=== PATIENT | male | born 1965 | race Two or more races ===

== ENCOUNTER 2025-04-08 17:22 | Emergency (ER) | payer BC ==
--- OUTSIDE RECORDS SUMMARY | 2025-04-08 17:26 | XMS REPORT | Continuity of Care Document ---
Author Name Unknown Address [address] [place] [address] Organization [facility] [place] Address [address] [place] [address] Care Team Providers Care Major Assembly Inspector Name Role Phone Pcp, Patient Does Not Have A Primary Care Physic alix Unavailable Gonzalo Madrigal Attending Clinician Unavailable Darrell Delcid Attending Clinician [phone] Unknown, Attending Attending Clinician Unavailab SALAS Hartman Attending Clinician Unavailable Salas Irby Attending Clinician [phone] Unknown, Attending Attending Clinician Unavailab PROMISE Browne Attending Clinician Unavailable Promise Valencia PA-C Attending Clinician [phone] Doctor Unassigned, [place] Attending Clinician U navailANANTH Mitchell Attending Clinician Unavail ANANTH Mitchell Attending Clinician Unavail Ananth Mitchell MD Attending Clinician [phone] JASMYN ADAME Attending Clinician UnavailAspen Matos MD Attending Clinician [phone] Jasmyn Mon Attending Clinician [phone] Payers Payer Name Policy Type Policy Number Effective Date Expirati on Date Source [facility] [id number] [facility] Problems Condition Name Condition Details Condition Category Status Onset Date Resolution Date Last Treatment Date Treating Clinician Comments Source No known active problems No known active problems Disease [facility] 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 Type 2 diabetes mellitus with hyperglyce kalpana Problem [facility] Hyperlipid aemia Hyperlipem ia Problem [facility] Hypertensi on Hypertensi on Problem [facility] [id number] Iron deficiency anemia, unspecifie d iron deficiency anemia type Problem [facility] Allergies, Adverse Reactions, Alerts Allergy Name Allergy Type Status Severity Reaction(s) Onset Date Inactive Date Treating Clinician Comments Source NO KNOWN ALLERGIE S Drug Class Active [facility] Social History Social Habit Start Date Stop Date Quantity Comments Source Gender identity [facility] Sexual orientation U [facility] History of Tobacco Use [facility] Sex Assigned At [facility] Exposure to SARS-CoV-2 (event) 2022-03-12 00:00:00 2022-03-22 14:05:[address] [facility] [place] [place] History of Social function 2021-06-19 00:00:00 2021-06-19 00:00:[address] [facility] [place] [place] Tobacco use and exposure 2021-03-26 00:00:00 2021-03-26 00:00:00 Smokeless tobacco non-user [facility] [place] [place] Smoking Status Start Date Stop Date Source Never Smoker [facility] Medications Ordered Medication Name Filled Medication Name Start Date Stop Date Current Medication? Ordering Clinician Indication Dosage Frequency Signature (SIG) Comments Components Source cephALEXin 500 mg capsule 2024-06 0-15 00:00: 00 04-17 04:59 :00 Yes [id number] 500mg Take 1 capsule by mouth 4 times daily for 10 days. [facility] nirmatrelvi r-ritonavir (PAXLOVID) 300 mg (150 mg x 2)-100 mg tablet 6-25 00:00: 00 Yes [id number] 3{tbl} Take 3 tablets by mouth in the morning and 3 tablets in the evening. [facility] amoxicillin 500 mg capsule 8-24 00:00: 00 02-21 04:59 :00 No [id number] 500mg Take 1 capsule by mouth in the morning and 1 capsule in the evening. Do all this for 7 days. [facility] diclofenac 50 mg tablet 930 00:00: 00 Yes [id number] 50mg Take 1 tablet by mouth 3 (three) times daily as needed for Pain (scale 4-6). [facility] predniSONE (DELTASONE) 20 mg tablet 2020-06 19:29: 08 Yes 20mg Take 20 mg by mouth 2 (two) times daily. [facility] triamcinolo ne acetonide (TRIDERM) 0.1 % cream 2020-06 19:29: 08 Yes Apply to area(s) 2 (two) times daily. [facility] cyclobenzap rine 5 mg tablet 2020-06 00:00: 00 Yes [id number] 5mg Take 1 tablet by mouth at bedtime. [facility] bromphenira mine-pseudo ephedrine-D M (BROMFED DM) 2-30-10 mg/5 mL syrup 2020-06 0 00:00: 00 Yes [id number] 5mL Take 5 mL by mouth 4 (four) times daily as needed for Congestion /Allergies or Cough. [facility] losartan 25 mg tablet 01-08 00:00: 00 Yes 25mg Take 25 mg by mouth every morning. [facility] metFORMIN 500 mg tablet 01-08 00:00: 00 Yes 500mg Take 500 mg by mouth 2 (two) times daily. [facility] pravastatin 40 mg tablet 01-08 00:00: 00 Yes 40mg Take 40 mg by mouth at bedtime. [facility] predniSONE (DELTASONE) 20 mg tablet 08-13 10:16: 14 Yes 20mg Take 20 mg by mouth 2 (two) times daily. [facility] triamcinolo ne acetonide (TRIDERM) 0.1 % cream 08-13 10:16: 14 Yes Apply to area(s) 2 (two) times daily. [facility] naproxen (NAPROSYN) 500 mg tablet 08-10 00:00: 00 Yes 500mg Take 1 Tab by mouth as needed for Pain (scale 4-6) (TO MAX OF BID). [facility] acetaminoph en-codeine (TYLENOL #3) 300-30 mg tablet 08-10 00:00: 00 Yes 1{tbl} Take 1 Tab by mouth every 4 (four) hours as needed for Pain unrelieved by non-narcot ic analgesics . [facility] Iron (Ferrous Sulfate) 325 (65 Fe) MG Iron (Ferrous Sulfate) 325 (65 Fe) MG No 1{table t} BID Iron (Ferrous Sulfate) 325 (65 Fe) MG Synjardy XR 12.5-1000 MG Synjardy XR 12.5-1000 MG No 1{table t_with_ breakfa st} QD Synjardy XR 12.5-1000 MG Losartan Potassium 25 MG Losartan Potassium 25 MG No 1{table t} QD Losartan Potassium 25 MG Pravastatin Sodium 40 MG Pravastatin Sodium 40 MG No 1{table t} QD Pravastati n Sodium 40 MG Immunizations Ordered Immunization Name Filled Immunization Name Date Status Comments Source SARS-COV-2 COVID-19 MODERNA 12+ YRS VACCINE 2020-08-27 00:00:[address] [facility] [place] [place] SARS-COV-2 COVID-19 MODERNA 12+ YRS VACCINE 2020-08-27 00:00:[address] [facility] [place] [place] SARS-COV-2 COVID-19 MODERNA 12+ YRS VACCINE 2020-08-27 00:00:[address] [facility] [place] [place] SARS-COV-2 COVID-19 MODERNA 12+ YRS VACCINE 2020-08-27 00:00:[address] [facility] [place] [place] SARS-COV-2 COVID-19 MODERNA VACCINE 2020-08-27 00:00:[address] [facility] [place] [place] SARS-COV-2 COVID-19 MODERNA 12+ YRS VACCINE 2020-08-27 00:00:00 Completed SARS-COV-2 COVID-19 MODERNA VACCINE 2020-08-27 00:00:[address] [facility] [place] [place] SARS-COV-2 COVID-19 MODERNA 12+ YRS VACCINE 2020-07-30 00:00:[address] [facility] [place] [place] SARS-COV-2 COVID-19 MODERNA 12+ YRS VACCINE 2020-07-30 00:00:[address] [facility] [place] [place] SARS-COV-2 COVID-19 MODERNA 12+ YRS VACCINE 2020-07-30 00:00:[address] [facility] [place] [place] SARS-COV-2 COVID-19 MODERNA 12+ YRS VACCINE 2020-07-30 00:00:[address] [facility] [place] [place] SARS-COV-2 COVID-19 MODERNA VACCINE 2020-07-30 00:00:[address] [facility] [place] [place] SARS-COV-2 COVID-19 MODERNA 12+ YRS VACCINE 2020-07-30 00:00:[address] [facility] [place] [place] SARS-COV-2 COVID-19 MODERNA VACCINE 2020-07-30 00:00:[address] [facility] [place] [place] SARS-COV-2 COVID-19 MODERNA 12+ YRS VACCINE Unknown Completed [facility] [place] [place] Fluarix (IIV3) - SDS - 0.5mL Fluarix (IIV3) - SDS - 0.5mL Unknown Completed [facility] Boostrix (Tdap) Boostrix (Tdap) Unknown Completed [facility] Vital Signs Vital Name Observation Time Observation Value Comments S ource Systolic blood pressure 2025-04-06 23:37:00 146 mm[Hg] [facility] Diastolic blood pressure 2025-04-06 23:37:00 85 mm[Hg] [facility] Heart rate 2025-04-06 23:37:00 112 /min [facility] Body temperature 2025-04-06 23:37:[address] [facility] [place] [place] Body height 2025-04-06 23:37:00 172.7 cm [facility] Body weight 2025-04-06 23:37:00 70.308 kg [facility] BMI 2025-04-06 23:37:00 23.57 kg/m2 [facility] Oxygen saturation in Arterial blood by Pulse oximetry 2025-04-06 23:37:00 97 /min [place] [facility] height 2025-01-18 16:00:00 67 [in_i] [facility] n [facility] weight 2025-01-18 16:00:00 159 [lb_av] Comm on [facility] temperature 2025-01-18 16:00:00 97.3 [degF] Com mon [facility] bmi 2025-01-18 16:00:00 24.9 kg/m2 [facility] oximetry 2025-01-18 16:00:00 99 % [facility] respiratory rate 2025-01-18 16:00:00 16 /min [facility] blood pressure systolic 2025-01-18 16:00:00 126 mm[Hg] [facility] blood pressure diastolic 2025-01-18 16:00:00 76 mm[Hg] [facility] height 2024-08-19 16:00:00 67 [in_i] Commo n [facility] weight 2024-08-19 16:00:00 159.4 [lb_av] Co mmon [facility] temperature 2024-08-19 16:00:00 97.2 [degF] Com mon [facility] bmi 2024-08-19 16:00:00 24.96 kg/m2 Comm on [facility] oximetry 2024-08-19 16:00:00 98 % Commo n [facility] respiratory rate 2024-08-19 16:00:00 16 /min [facility] blood pressure systolic 2024-08-19 16:00:00 122 mm[Hg] Common [facility] blood pressure diastolic 2024-08-19 16:00:00 78 mm[Hg] [facility] height 2024-03-31 16:15:00 67 [in_i] Commo n [facility] weight 2024-03-31 16:15:00 158.8 [lb_av] Co on [facility] temperature 2024-03-31 16:15:00 97.8 [degF] Com mon [facility] bmi 2024-03-31 16:15:00 24.87 kg/m2 Comm on [facility] oximetry 2024-03-31 16:15:00 97 % Commo n [facility] blood pressure systolic 2024-03-31 16:15:00 124 mm[Hg] [facility] blood pressure diastolic 2024-03-31 16:15:00 68 mm[Hg] [facility] height 2024-03-31 16:15:00 67 [in_i] Commo n [facility] weight 2024-03-31 16:15:00 158.8 [lb_av] Co on [facility] temperature 2024-03-31 16:15:00 97.8 [degF] Com [facility] bmi 2024-03-31 16:15:00 24.87 kg/m2 Comm on [facility] oximetry 2024-03-31 16:15:00 97 % Commo n [facility] blood pressure systolic 2024-03-31 16:15:00 124 mm[Hg] [facility] blood pressure diastolic 2024-03-31 16:15:00 68 mm[Hg] [facility] Systolic blood pressure 2023-12-16 14:13:00 137 mm[Hg] [facility] Diastolic blood pressure 2023-12-16 14:13:00 84 mm[Hg] [facility] Heart rate 2023-12-16 14:13:00 106 /min [facility] Body temperature 2023-12-16 14:13:[address] [facility] [place] [place] Respiratory rate 2023-12-16 14:13:00 21 /min [facility] [place] Body weight 2023-12-16 14:13:00 70.489 kg [facility] BMI 2023-12-16 14:13:00 23.63 kg/m2 [facility] Oxygen saturation in Arterial blood by Pulse oximetry 2023-12-16 14:13:00 98 /min [facility] Systolic blood pressure 2023-02-13 22:59:00 122 mm[Hg] [facility] Diastolic blood pressure 2023-02-13 22:59:00 77 mm[Hg] [facility] Heart rate 2023-02-13 22:58:00 116 /min [facility] Body temperature 2023-02-13 22:58:[address] [facility] [place] [place] Respiratory rate 2023-02-13 22:58:00 17 /min [facility] [place] Body weight 2023-02-13 22:58:00 73.029 kg [facility] BMI 2023-02-13 22:58:00 24.48 kg/m2 [facility] Oxygen saturation in Arterial blood by Pulse oximetry 2023-02-13 22:58:00 100 /min [facility] Systolic blood pressure 2022-03-22 19:18:00 155 mm[Hg] [facility] Diastolic blood pressure 2022-03-22 19:18:00 84 mm[Hg] [facility] Heart rate 2022-03-22 19:17:00 83 /min [facility] Body height 2022-03-22 19:17:00 172.7 cm [facility] Body weight 2022-03-22 19:17:00 76.658 kg [facility] BMI 2022-03-22 19:17:00 25.70 kg/m2 [facility] Oxygen saturation in Arterial blood by Pulse oximetry 2022-03-22 19:17:00 99 /min [facility] Systolic blood pressure 2021-06-20 01:27:00 172 mm[Hg] [facility] Diastolic blood pressure 2021-06-20 01:27:00 88 mm[Hg] [facility] Heart rate 2021-06-20 01:27:00 114 /min [facility] Body temperature 2021-06-20 01:27:[address] [facility] [place] [place] Body height 2021-06-20 01:27:00 172.7 cm [facility] Body weight 2021-06-20 01:27:00 78.019 kg [facility] BMI 2021-06-20 01:27:00 26.15 kg/m2 [facility] Oxygen saturation in Arterial blood by Pulse oximetry 2021-06-20 01:27:00 98 /min [facility] Systolic blood pressure 2021-03-26 21:49:00 134 mm[Hg] [facility] Diastolic blood pressure 2021-03-26 21:49:00 83 mm[Hg] [facility] Heart rate 2021-03-26 21:49:00 111 /min [facility] Body temperature 2021-03-26 21:49:[address] [facility] [place] [place] Respiratory rate 2021-03-26 21:49:00 18 /min [facility] [place] [place] Body height 2021-03-26 21:49:00 172.7 cm [facility] Body weight 2021-03-26 21:49:00 76.204 kg [facility] BMI 2021-03-26 21:49:00 25.55 kg/m2 [facility] Oxygen saturation in Arterial blood by Pulse oximetry 2021-03-26 21:49:00 98 /min [facility] Procedures Procedure Date / Time Performed Performing Clinicia n Source POCT SARS-COV-2 ANTIGEN (BINAX NOW) 2023-12-16 14:30:[address] [facility] [place] [place] CONSENT/REFUSAL FOR DIAGNOSIS AND TREATMENT 2023-02-13 22:44:43 Doctor Unassigned, [place] [facility] [place] [place] ASSIGNMENT OF BENEFITS 2023-02-13 22:44:31 Docto r Unassigned, [place] [facility] [place] [place] EXTERNAL PROVIDER RECORDS 2022-04-15 05:01:00 Doctor Unassigned, [place] [facility] [place] [place] Encounters Start Date/Time End Date/Time Encounter Type Admission Type Attending [facility] Care Facility Care Department Encounter ID Source 2024-03-31 15:47:00 Outpatient Gonzalo [facility]rigal [facility] [id number] [facility] 2023-05-29 14:57:02 [facility] [id number] [facility] 2025-04-06 18:20:00 2025-04-06 18:52:01 Urgent Care R Darrell Ramírez Unknown, Attending [facility] [id number] [facility] 2025-01-18 00:00:00 2025-01-18 00:00:00 OFFICE VISIT ESTAB PT LEVEL 4 [facility] [id number] [facility] 2024-08-19 00:00:00 2024-08-19 00:00:00 OFFICE VISIT ESTAB PT LEVEL 4 [facility] [id number] [facility] 2024-08-11 00:00:00 2024-08-11 00:00:00 (TEL) [facility] [id number] [facility] 2024-05-03 00:00:00 2024-05-03 00:00:00 (TEL) [facility] [id number] [facility] 2024-03-31 00:00:00 2024-03-31 00:00:00 (WELLNESS) [facility] [id number] [facility] 2023-12-16 09:20:00 2023-12-16 10:24:31 Outpatient SALAS [facility] [id number] [facility] 2023-12-16 09:20:00 2023-12-16 09:40:00 Urgent Care Salas Curran Unknown, Attending [facility] [id number]..840.114 [id number] [facility] 2023-02-13 17:45:00 2023-02-13 18:03:55 Outpatient R PROMISE [facility]ENCIA [facility] [id number] [facility] 2023-02-13 17:45:00 2023-02-13 18:03:55 Urgent Care Promise Valencia Unknown, Attending [facility] [id number] [id number] [facility] 2023-02-13 00:00:00 2023-02-13 00:00:00 Orders Only Doctor Unassigned, [place] [facility] [id number] [id number] [id number] [id number] [facility] 2022-04-15 00:00:00 2022-04-15 00:00:00 Orders Only Doctor Unassigned, [place] [facility] [id number] [id number] [id number] [id number] [facility] 2022-04-01 16:00:00 2022-04-01 16:00:00 Outpatient ANANTH WO[facility]S [facility] [id number] [facility] 2022-03-22 14:20:00 2022-03-22 16:19:27 Outpatient ANANTH [facility] [id number] [facility] 2022-03-22 14:20:00 2022-03-22 16:19:27 Office Visit Ananth Mike Gene [facility] [id number] [id number] [id number] [id number] [facility] 2021-06-19 19:20:00 2021-06-19 19:41:36 [facility] [id number] [facility] 2021-06-19 19:20:00 2021-06-19 19:41:36 Urgent Care Aspen [facility] [id number] [id number] [id number] [id number] [facility] 2021-03-26 16:51:26 2021-03-26 17:11:26 Urgent Care Deep, [facility] [id number] [facility] 2021-03-26 17:00:00 2021-03-26 17:00:00 Outpatient R [facility] [id number] [facility] Results Test Description Test Time Test Comments Results Result Co mments Source POCT SARS-COV-2 ANTIGEN (BINAX NOW)2023-12-16 14:30:00* Test Item Value Reference Range Interpretation Comme nts POCT SARS-COV-2 ANTIGEN (delano t code = 50115-7) Positive Not Detected, See Comment A On board controls acceptable with C Line (test code = 3574) Yes Lab Interpretation (test cod e = [id number]) Abnormal [facility] [place]
[2025-04-08] MEDS ORDERED: CLINDAMYCIN 900MG/D5W 900 MG/50 ML IVPB IV ONE (18:44)
[2025-04-08] MEDS ORDERED: NA CHLORIDE 0.9% 100 ML ONE (18:44)
[2025-04-08] MEDS ORDERED: MUPIROCIN 2% OINT 22GM TUBE TOP ONE (18:44)
[2025-04-08] MEDS ORDERED: CEFAZOLIN SODIUM 2 GM/VIAL ONE (18:45)
[2025-04-08] MEDS ORDERED: NA CHLORIDE 0.9% 1,000 ML ONE (18:45)
--- NOTE | 2025-04-08 18:58 | RAD REPORT ---
EXAMINATION: US LEFT LOWER EXTREMITY VENOUS DOPPLER CLINICAL INDICATION: [facility] MAIN L Pain;Swelling Bed: Y TECHNIQUE: Complete bilateral duplex sonography of the LEFT lower extremity veins was performed. The examination included compression for vein patency, color Doppler imaging and flow augmentation in response to distal compression of the distal external iliac, common femoral, femoral, popliteal, tibi al, and great and small saphenous veins. COMPARISON: No prior exam. FINDINGS: Duplex sonography testing of the veins of the LEFT lower extremity was performed. Color flow imaging shows all veins to be compressible with [id number] color filling. Pulsatile and phasic flow is present within all lower extremity deep and superficial veins examined. IMPRESSION: No evidence of deep venous thrombosis.
--- NOTE | 2025-04-08 19:01 | EDPHYS ---
Physician Documentation [facility] Name: Petr Garcia Age: 59 yrs Sex: Male : 1965 Arrival Date: 04/08/2025 Time: 17:22 Bed 13 Private MD: ED Physician Shai Mc HPI: 04/08 18:38 This 59 yrs old [place] Male presents to ER via Ambulatory with complaints of Leg Pain kenyon - swelling,red. 18:38 The patient presents with an abscess, moderate-sized, decreased range of motion, pain. kenyon The complaints affect the lateral aspect of left knee and left knee. Context: The problem was sustained at home, resulted from. Onset: The symptoms/episode began/occurred 3 day(s) ago. Modifying factors: The symptoms are alleviated by elevating leg, remaining still, the symptoms are aggravated by movement, weight bearing. Associated signs and symptoms: The patient has no apparent associated signs or symptoms. Treatment prior to arrival includes: on keflex. Severity of symptoms: At their worst the symptoms were mild, in the emergency department the symptoms are unchanged. The patient has not experienced similar symptoms in the past. Historical: - Allergies: 17:50 unknown medication; iw - Home Meds: 17:51 losartan 50 mg oral tablet [Active]; pravastatin 20 mg oral tablet [Active]; iw - PMHx: 17:50 Diabetes mellitus; iw - PSHx: 17:51 None; iw - Immunization history:: Adult Immunizations unknown. - Infectious Disease History:: Denies. - Family history:: not pertinent. - Social history:: Smoking status: unknown. ROS: 18:38 Constitutional: Negative for fever, chills, and weight loss, Eyes: Negative for injury, kenyon pain, redness, and discharge, ENT: Negative for injury, pain, and discharge, Neck: Negative for injury, pain, and swelling, Cardiovascular: Negative for chest pain, palpitations, and edema, Respiratory: Negative for shortness of breath, cough, wheezing, and pleuritic chest pain, Abdomen/GI: Negative for abdominal pain, nausea, vomiting, diarrhea, and constipation, Back: Negative for injury and pain, : Negative for injury, bleeding, discharge, and swelling, Neuro: Negative for headache, weakness, numbness, tingling, and seizure, Psych: Negative for depression, anxiety, suicide ideation, homicidal ideation, and hallucinations, Allergy/Immunology: Negative for hives, rash, and allergies, Endocrine: Negative for neck swelling, polydipsia, polyuria, polyphagia, and marked weight changes, Hematologic/Lymphatic: Negative for swollen nodes, abnormal bleeding, and unusual bruising, 18:38 MS/extremity: Positive for pain, swelling, tenderness, of the left knee, 18:38 Skin: Positive for cellulitis, swelling, of the medial aspect of left knee and left knee, Exam: 18:38 Constitutional: This is a well developed, well nourished patient who is awake, alert, kenyon and in no acute distress. Head/Face: Normocephalic, atraumatic. Eyes: Pupils equal round and reactive to light, extra-ocular motions intact. Lids and lashes normal. Conjunctiva and sclera are non-icteric and not injected. Cornea within normal limits. Periorbital areas with no swelling, redness, or edema. ENT: Nares patent. No nasal discharge, no septal abnormalities noted. Tympanic membranes are normal and external auditory canals are clear. Oropharynx with no redness, swelling, or masses, exudates, or evidence of obstruction, uvula midline. Mucous membranes moist. Neck: Trachea midline, no thyromegaly or masses palpated, and no cervical lymphadenopathy. Supple, full range of motion without nuchal rigidity, or vertebral point tenderness. No Meningismus. Chest/axilla: Normal chest wall appearance and motion. Nontender with no deformity. No lesions are appreciated. Cardiovascular: Regular rate and rhythm with a normal S1 and S2. No gallops, murmurs, or rubs. Normal PMI, no JVD. No pulse deficits. Respiratory: Lungs have equal breath sounds bilaterally, clear to auscultation and percussion. No rales, rhonchi or wheezes noted. No increased work of breathing, no retractions or nasal flaring. Abdomen/GI: Soft, non-tender, with normal bowel sounds. No distension or tympany. No guarding or rebound. No evidence of tenderness throughout. Back: No spinal tenderness. No costovertebral tenderness. Full range of motion. Neuro: Awake and alert, GCS 15, oriented to person, place, time, and situation. Cranial nerves II-XII grossly intact. Motor strength 5/5 in all extremities. Sensory grossly intact. Cerebellar exam normal. Normal gait. Psych: Awake, alert, with orientation to person, place and time. Behavior, mood, and affect are within normal limits. 18:38 Skin: cellulitis, that is mild, that is moderate, induration, that is mild is noted, injury, contusion(s), Vital Signs: 17:47 BP 140 / 92; Pulse 94; Resp 16; Temp 98.2(O); Pulse Ox 100% on R/A; Weight 70.31 kg; iw Height 5 ft. 8 in. ; Pain 7/10; 19:00 BP 132 / 76; Pulse 80; Resp 18; Pulse Ox 99% on R/A; kj2 20:08 BP 121 / 74; Pulse 85; Resp 20; Temp 98.1; Pulse Ox 100% on R/A; kj2 17:47 Body Mass Index 23.57 (70.31 kg, 172.72 cm) iw 17:47 Pain Scale: Adult iw MDM: 17:26 Medical Screening Exam initiated kenyon 18:45 Differential diagnosis: closed fracture, contusion, abrasion, tendonitis. Data [facility] reviewed: vital signs, nurses notes, lab test result(s), radiologic studies, plain films, ultrasound. Consideration of Admission/Observation Escalation of care including admission/observation considered. I considered the following discharge prescriptions or medication management in the emergency department Medications were administered in the Emergency Department. See MAR. Independent interpretation of the following test(s) in the Emergency Department X-Ray: My interpretation is no fx. Test considered but Not performed: MRI: no mri. Historians other than the Patient: Spouse/Significant Other: well informed. Care significantly affected by the following chronic conditions: Diabetes. Counseling: I had a detailed discussion with the patient and/or guardian regarding the historical points, exam findings, and any diagnostic results supporting the discharge/admit diagnosis, lab results, radiology results, the need for outpatient follow up, for definitive care, a general surgeon. 04/08 17:27 Order name: CBC with Diff [facility] 04/08 17:27 Order name: CMP [facility] 04/08 17:27 Order name: Blood Culture Adult (2) [facility] 04/08 17:27 Order name: Lactate w/ 2H reflex if indic. [facility] 04/08 18:37 Order name: Knee Left 3 View XRAY [facility] 04/08 18:52 Order name: Extremity Venous Uni Ltd; Complete Time: 19:00 EDMS 04/08 19:19 Order name: Misc. Order: RECOLLECT GREEN TOP; Complete Time: 19:43 rv1 Administered Medications: 19:05 Drug: Clindamycin PO 300 mg PO once Route: PO; kj2 20:12 Follow up: Response: No adverse reaction kj2 19:05 Drug: Mupirocin Ointment 2 % 1 application Topical once Route: Topical; Site: affected kj2 area; 20:11 Follow up: Response: No adverse reaction kj2 19:06 Drug: Clindamycin IVPB 900 mg IVPB once over 30 mins; (mix in 50 mL) Route: IVPB; kj2 Infused Over: 30 mins; Site: right antecubital; 20:12 Follow up: IV Status: Completed infusion; IV Intake: 50ml kj2 19:20 Drug: ceFAZolin IVPB 2 grams IVPB once over 30 mins; (mix in 100 mL NS) Route: IVPB; kj2 Infused Over: 30 mins; Site: right antecubital; 20:12 Follow up: IV Status: Completed infusion; IV Intake: 100ml kj2 19:21 Drug: NS 0.9% IV 1000 ml IV at 1000 ml once; to be given as a bolus over 60 minutes kj2 Route: IV; Rate: 1000 ml; Site: right antecubital; 20:12 Follow up: IV Status: Completed infusion; IV Intake: 980ml kj2 Disposition Summary: 04/08/25 19:00 Discharge Ordered Notes: Location: Home kenyon Problem: new kenyon Symptoms: have improved kenyno Condition: Stable kenyon Diagnosis - Cellulitis of left lower limb - knee kenyon - Contusion of knee kenyon Followup: kenyon - With: Private Physician - When: 2 - 3 days - Reason: Recheck today's complaints, Continuance of care, Re-evaluation by your physician Followup: kenyon - With: Hiram Willoughby MD - When: 2 - 3 days - Reason: Recheck today's complaints, Re-evaluation by your physician Discharge Instructions: - Discharge Summary Sheet kenyon - Contusion kenyon - Cellulitis, Adult kenyon - Cellulitis, Adult, [id number] kenyon - Lymphangitis, Adult kenyon Forms: - Medication Reconciliation Form kenyon - Antibiotic Education kenyon - Prescription Opioid Use kenyon - Patient Portal Instructions kenyon - Leadership Thank You Letter kenyon Prescriptions: - Centany 2 % Topical ointment - apply 1 application TOPICAL route 3 times per day; 15 application; Refills: 0, kenyon Product Selection Permitted - Clindamycin HCl 300 mg Oral Capsule - take 1 capsule ORAL route every 6 hours for 10 days; 40 capsule; Refills: 0, kenyon Product Selection Permitted Signatures: Dispatcher [employer] EDShai Harmon MD MD cha Williams, Irene, RN RN iw Villegas, Rebecca rv1 Zahida Barker RN RN kj2 Corrections: (The following items were deleted from the chart) 17:28 17:28 CBC+H.LAB.BRZ ordered. EDMS EDMS 17:28 17:28 COMPREHENSIVE METABOLIC PANEL+C.LAB.BRZ ordered. EDMS EDMS 17:28 17:28 BLOOD CULTURE*+BA.LAB.BRZ ordered. EDMS EDMS 17:28 17:28 LACTATE+C.LAB.BRZ ordered. EDMS EDMS 17:28 17:28 Extrem Venous W Compression Joe+US.RAD.BRZ ordered. EDMS EDMS 18:38 18:38 Knee Left 3 View+RAD.RAD.BRZ ordered. EDMS EDMS
--- NOTE | 2025-04-08 19:01 | ER ---
Nurse's Notes [facility] Name: Petr Garcia Age: 59 yrs Sex: Male : 1965 Arrival Date: 04/08/2025 Time: 17:22 Bed 13 Private MD: Diagnosis: Cellulitis of left lower limb-knee;Contusion of knee Presentation: 04/08 17:46 Chief complaint: Patient states: pain, redness, swelling to left knee since Friday iw night, remembers hitting his car door the week before, his leg is also more swollen than the other, he has been on abx since yesterday afternoon. Coronavirus screen: At this time, the client does not indicate any symptoms associated with coronavirus-19. Ebola Screen: No symptoms or risks identified at this time. Initial Sepsis Screen: Does the patient meet any 2 criteria? No. Patient's initial sepsis screen is negative. Does the patient have a suspected source of infection? No. Patient's initial sepsis screen is negative. 17:46 Method Of Arrival: Ambulatory iw 17:47 Risk Assessment: Do you want to hurt yourself or someone else? Patient reports no iw desire to harm self or others. Onset of symptoms was April 03, 2025. 17:47 Acuity: LU 3 iw Historical: - Allergies: 17:50 unknown medication; iw - Home Meds: 17:51 losartan 50 mg oral tablet [Active]; pravastatin 20 mg oral tablet [Active]; iw - PMHx: 17:50 Diabetes mellitus; iw - PSHx: 17:51 None; iw - Immunization history:: Adult Immunizations unknown. - Infectious Disease History:: Denies. - Family history:: not pertinent. - Social history:: Smoking status: unknown. Screenin:45 [facility] ED Fall Risk Assessment (Adult) History of falling in the last 3 months, kj2 including since admission No falls in past 3 months (0 pts) Confusion or Disorientation No (0 pts) Intoxicated or Sedated No (0 pts) Impaired Gait No (0 pts) Mobility Assist Device Used No (0 pt) Altered Elimination No (0 pt) Score/Fall Risk Level 0 - 2 = Low Risk Maintained a safe environment, Hourly rounding (assess needs \T\ fall precautionary measures) done. Abuse screen: Denies threats or abuse. Denies injuries from another. Nutritional screening: No deficits noted. Tuberculosis screening: No symptoms or risk factors identified. Assessment: 18:45 General: Appears in no apparent distress. Behavior is cooperative. Pain: Complains of kj2 pain in left leg and left knee Pain currently is 3 out of 10 on a pain scale. Neuro: Level of Consciousness is awake, alert, obeys commands, Oriented to person, place, time, situation. Cardiovascular: Patient's skin is warm and dry. Respiratory: Airway is patent Respiratory effort is unlabored. GI: No signs and/or symptoms were reported involving the gastrointestinal system. : No signs and/or symptoms were reported regarding the genitourinary system. 20:08 Reassessment: Patient appears in no apparent distress at this time. Patient and/or kj2 family updated on plan of care and expected duration. Pain level reassessed. Patient is alert, oriented x 3, equal unlabored respirations, skin warm/dry/pink. Vital Signs: 17:47 BP 140 / 92; Pulse 94; Resp 16; Temp 98.2(O); Pulse Ox 100% on R/A; Weight 70.31 kg; iw Height 5 ft. 8 in. ; Pain 7/10; 19:00 BP 132 / 76; Pulse 80; Resp 18; Pulse Ox 99% on R/A; kj2 20:08 BP 121 / 74; Pulse 85; Resp 20; Temp 98.1; Pulse Ox 100% on R/A; kj2 17:47 Body Mass Index 23.57 (70.31 kg, 172.72 cm) iw 17:47 Pain Scale: Adult iw ED Course: 17:26 Patient arrived in ED. al6 17:26 Shai Mc MD is Attending Physician. kenyon 17:48 Triage completed. iw 18:37 Zahida Barker, RN is Primary Nurse. kj2 18:45 Inserted saline lock: 20 gauge in right antecubital area, using aseptic technique. kj2 Blood collected. Flushed with 10 mL NS. 18:45 Patient has correct armband on for positive identification. Placed in gown. Bed in low kj2 position. Call light in reach. Adult w/ patient. Provided Education on: call light. 18:52 Extremity Venous Uni Ltd In Process Unspecified. EDMS 19:00 Hiram Willoughby MD is Referral Physician. kenyon 19:19 Knee Left 3 View XRAY In Process Unspecified. EDMS 20:11 No provider procedures requiring assistance completed. IV discontinued, intact, kj2 bleeding controlled, No redness/swelling at site. Pressure dressing applied. Administered Medications: 19:05 Drug: Clindamycin PO 300 mg PO once Route: PO; kj2 20:12 Follow up: Response: No adverse reaction kj2 19:05 Drug: Mupirocin Ointment 2 % 1 application Topical once Route: Topical; Site: affected kj2 area; 20:11 Follow up: Response: No adverse reaction kj2 19:06 Drug: Clindamycin IVPB 900 mg IVPB once over 30 mins; (mix in 50 mL) Route: IVPB; kj2 Infused Over: 30 mins; Site: right antecubital; 20:12 Follow up: IV Status: Completed infusion; IV Intake: 50ml kj2 19:20 Drug: ceFAZolin IVPB 2 grams IVPB once over 30 mins; (mix in 100 mL NS) Route: IVPB; kj2 Infused Over: 30 mins; Site: right antecubital; 20:12 Follow up: IV Status: Completed infusion; IV Intake: 100ml kj2 19:21 Drug: NS 0.9% IV 1000 ml IV at 1000 ml once; to be given as a bolus over 60 minutes kj2 Route: IV; Rate: 1000 ml; Site: right antecubital; 20:12 Follow up: IV Status: Completed infusion; IV Intake: 980ml kj2 Medication: 20:10 VIS not applicable for this client. kj2 Intake: 20:12 IV: 50ml; Total: 50ml. kj2 20:12 IV: 100ml; Total: 150ml. kj2 20:12 IV: 980ml; Total: 1130ml. kj2 Outcome: 19:00 Discharge ordered by . kenyon 20:11 Discharged to home ambulatory, kj2 20:11 Condition: stable 20:11 Discharge instructions given to patient, Instructed on discharge instructions, follow up and referral plans. Demonstrated understanding of instructions, follow-up care, 20:13 Patient left the ED. kj2 Signatures: Dispatcher [employer] EDMS Shai Mc MD MD cha Williams, Irene, RN RN iw Zahida Barker RN RN kj2 Virginia [email or web address] Corrections: (The following items were deleted from the chart) 17:50 17:47 BP 140 / 92; Pulse 94bpm; Resp 16bpm; Pulse Ox 100% RA; 70.31 kg; Height 5 ft. 8 iw in.; BMI: 23.5; Pain 7/10, Adult; iw
[2025-04-08 19:16] LABS: Absolute Lymphocytes (CBC) 1.5 K/uL (0.7-4.9); Hematocrit 44.6 % (39.6-49.0); Hemoglobin 14.7 g/dL (13.6-17.9); MCH 27.5 pg (27.0-35.0); MCHC 33.0 g/dL (32.0-36.0); MCV 83.2 fL (80-100); MPV 8.9 fL (7.6-11.3); Nucleated RBC Absolute Count 0.0 (0-0); Nucleated Red Blood Cells % 0.1 % (0-0); RBC Red Blood Cell Count 5.37 M/uL (4.33-5.43); White Blood Count 7.70 thou/uL (4.3-10.9)
--- NOTE | 2025-04-08 19:33 | RAD REPORT ---
EXAM: XR Knee Left 3 View HISTORY: [facility] MAIN PAIN Bed Name: 13 COMPARISON: None TECHNIQUE: 3 views of the left knee were obtained. FINDINGS: No knee effusion is seen. There is no evidence of acute fracture or dislocation. Mild dege nerative changes are seen. No soft tissue swelling or other soft tissue abnormality is present. IMPRESSION: No evidence of acute osseous abnormality.
[2025-04-08 20:08] LABS: ALT/SGPT 46.0 U/L (16-61); AST/SGOT 27.0 U/L (15-37); Albumin 3.4 g/dL (3.4-5.0); Albumin/Globulin Ratio 0.8 (1.1-1.8); Alkaline Phosphatase 65.0 U/L (45-117); Anion Gap 9.4 mEq/L (5.0-15.0); BUN Blood Urea Nitrogen 14.0 mg/dL (7-18); Globulin 4.4 g/dL (2.3-3.5); Glucose Level 105.0 mg/dL (74-106); Potassium 4.4 mEq/L (3.5-5.1)
[2025-04-09 01:42] VITALS: BP 121/74; TEMP 98.1; O2SAT 100
== END 2025-04-08 20:13 | disposition home or self-care (01) ==
LOC: ER 17:22
DX: L03.116 Cellulitis of left lower limb (principal)
CPT/HCPCS: 96365; 87040 ×2; 85025; 36415; 83605; 80053; 73562; 93971; 99284; J7030